=== PATIENT | female | born 1980 | race African-American/Black ===

== ENCOUNTER 2020-04-27 08:40 | Emergency (ER) | payer MEDICAID, OTHER ==
[~2020-04-27] VITALS: Ht 162.6 cm; Wt 60.3 kg
[~2020-04-27 08:40] MED LIST: CIPRO500 MG/5 M PO; DIFLUCAN150 MG PO; DIFLUCAN200 MG ORAL; IBUPROFEN600 MG PO; KEFLEX500 MG ORAL; MACROBID100 MG ORAL; METROGEL-VAGINA70 GM VG; RANITIDINE HCL150 MG ORAL; VICODIN 5-5001 EACH PO
[2020-04-27 08:56] VITALS: BP 109/67
--- NOTE | 2020-04-27 09:08 | Emergency Room Report ---
History of Present Illness General Chief Complaint: Generalized Weakness Source: Patient Present Illness HPI Patient is a 40-year-old female denies any significant past medical history who presents to the ER complaining of generalized weakness. Patient states that she has had heart palpitations over the past 3 days. She states that she feels her heart "jumping". She states that yesterday she ate some tacos and had several episodes of nonbloody diarrhea. Only one episode today. She denies any current abdominal pain, nausea or vomiting. She denies any fever or chills. Patient states that since yesterday she has felt more weak, fatigued and has shortness o f breath that is worse on exertion. She denies any lower extremity pain or edema. She denies any family history of early cardiovascular disease. She denies any recent travel. She denies being on any control or hormone replacement therapy. She denies any drug use or smoking. Allergies: Coded Allergies: No Known Allergies (Unverified , 11/27/11) COVID-19 Screening Contact w/high risk pt: No Experienced COVID-19 symptoms?: No COVID-19 Testing performed MEAT SCRUBBER: No Patient History Last Menstrual Period: 04/08/20 Now: No Reviewed Nursing Documentation: PMH: Agreed; PSxH: Agreed Nursing Documentation-PMH Past Medical History: No Stated History Review of Systems All Other Systems: negative except mentioned in HPI Physical Exam Vital Signs Date Time Temp Pulse Resp B/P (MAP) Pulse Ox O2 Delivery O2 Flow Rate FiO2 04/27/20 08:56 98.4 101 18 109/67 (81) 97 Room Air Sp02 EP Interpretation: reviewed, normal General Appearance: alert, GCS 15, non-toxic, mild distress Head: normocephalic Eyes: bilateral eye normal inspection, bilateral eye PERRL ENT: dry mucus membranes Neck: full range of motion, supple, no meningismus Respiratory: lungs clear, normal breath sounds, no accessory muscle use Cardiovascular #1: tachycardia Gastrointestinal: non tender, soft, no guarding, no rebound Genitourinary: no CVA tenderness Musculoskeletal: normal range of motion 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 Patient's labs demonstrate no significant acute abnormalities except for elevated D-dimer. I went over her results with her and explained to her that there were no acute abnormalities. Patient was concerned about the feeling of palpitations. I told her that she was on a property assessment monitor and that there were no arrhythmias that were seen during her time in the emergency room. Patient is pending CT chest abdomen pelvis. Patient signed out to oncoming physician at [address] results, reevaluation and final disposition. Laboratory Tests Test 04/27/20 09:05 04/27/20 09:07 White Blood Count 6.8 K/UL (4.8-10.8) Red Blood Count 5.03 M/UL (4.20-5.40) Hemoglobin 13.8 G/DL (12.0-16.0) Hematocrit 42.0 % (37.0-47.0) Mean Corpuscular Volume 84 FL (80-99) Mean Corpuscular Hemoglobin 27.4 PG (27.0-31.0) Mean Corpuscular Hemoglobin Concent 32.8 G/DL (32.0-36.0) Red Cell Distribution Width 12.4 % (11.6-14.8) Platelet Count 278 K/UL (150-450) Mean Platelet Volume 7.9 FL (6.5-10.1) Neutrophils (%) (Auto) 72.9 % (45.0-75.0) Lymphocytes (%) (Auto) 19.1 % (20.0-45.0) L Monocytes (%) (Auto) 6.8 % (1.0-10.0) Eosinophils (%) (Auto) 0.4 % (0.0-3.0) Basophils (%) (Auto) 0.9 % (0.0-2.0) Prothrombin Time 11.0 SEC (9.30-11.50) Prothrombin Time INR 1.0 (0.9-1.1) Activated Partial Thromboplast Time 27 SEC (23-33) D-Dimer 0.76 mg/L FEU (0.00-0.49) H Sodium Level 141 MMOL/L (136-145) Potassium Level 4.3 MMOL/L (3.5-5.1) Chloride Level 105 MMOL/L (98-107) Carbon Dioxide Level 25 MMOL/L (21-32) Anion Gap 11 mmol/L (5-15) Blood Urea Nitrogen 7 mg/dL (7-18) Creatinine 1.0 MG/DL (0.55-1.30) Estimated Glomerular Filtration Rate > 60 mL/min (>60) Glucose Level 100 MG/DL (74-106) Lactic Acid Level 2.00 mmol/L (0.4-2.0) Calcium Level 10.1 MG/DL (8.5-10.1) Magnesium Level 2.0 MG/DL (1.8-2.4) Total Bilirubin 0.3 MG/DL (0.2-1.0) Aspartate Amino Transferase (AST) 15 U/L (15-37) Alanine Aminotransferase (ALT) 13 U/L (12-78) Alkaline Phosphatase 71 U/L (46-116) Total Protein 8.0 G/DL (6.4-8.2) Albumin 4.3 G/DL (3.4-5.0) Globulin 3.7 g/dL Albumin/Globulin Ratio 1.2 (1.0-2.7) Lipase 197 U/L (73-393) Thyroid Stimulating Hormone (TSH) 2.703 uiU/mL (0.358-3.740) Free Thyroxine 1.35 NG/DL (0.76-1.46) Urine Color Pale yellow Urine Appearance Slightly cloudy Urine pH 6.5 (4.5-8.0) Urine Specific [place] 1.005 (1.005-1.035) Urine Protein Negative (NEGATIVE) Urine Glucose (UA) Negative (NEGATIVE) Urine Ketones Negative (NEGATIVE) Urine Blood 3+ (NEGATIVE) H Urine Nitrite Negative (NEGATIVE) Urine Bilirubin Negative (NEGATIVE) Urine Urobilinogen Normal MG/DL (0.0-1.0) Urine Leukocyte Esterase Negative (NEGATIVE) Urine RBC 2-4 /HPF (0 - 2) H Urine WBC 0-2 /HPF (0 - 2) Urine Squamous Epithelial Cells Moderate /LPF (NONE/OCC) H Urine Bacteria Few /HPF (NONE) Urine HCG, Qualitative Negative (NEGATIVE) Urine Opiates Screen Negative (NEGATIVE) Urine Barbiturates Screen Negative (NEGATIVE) Phencyclidine (PCP) Screen Negative (NEGATIVE) Urine Amphetamines Screen Negative (NEGATIVE) Urine Benzodiazepines Screen Negative (NEGATIVE) Urine Cocaine Screen Negative (NEGATIVE) Urine Marijuana (THC) Screen Negative (NEGATIVE) EKG Diagnostic Results Troponin ordered: Yes When was troponin ordered?: Apr 27, 2020 EKG Time: 09:13 EP Interpretation: Ya Elizondo MD Rate: normal - 90 bpm Rhythm: NSR ST Segments: no acute changes ASA given to the pt in ED: No Rhythm Strip Diag. Results Rhythm Strip Time: 09:08 EP Interpretation: yes - Ya Elizondo MD Rate: 102 bpm Rhythm: no PVC's, no ectopy, other - sinus tachycardia Chest X-Ray Diagnostic Results Chest X-Ray Diagnostic Results : Chest X-Ray Ordered: Yes # of Views/Limited/Complete: 1 View Indication: Shortness of Breath EP Interpretation: Yes Interpretation: no consolidation, no effusion, no pneumothorax, no acute cardiopulmonary disease Impression: No acute disease Electronically Signed by: Ya Elizondo MD Last Vital Signs Date Time Temp Pulse Resp B/P (MAP) Pulse Ox O2 Delivery O2 Flow Rate FiO2 04/27/20 08:56 98.4 101 18 109/67 (81) 97 Room Air Condition: Stable Signed Out To: Dr. Jimenez at 1400 Scripts Metronidazole* (FLAGYL*) 500 Mg Tablet 500 MG ORAL THREE TIMES A DAY, #21 TAB Prov: Gary Jimenez MD 04/27/20 Famotidine* (Pepcid 20mg tablet*) 20 Mg Tablet 20 MG ORAL DAILY for Gerd, #30 TAB 0 Refills Prov: Gary Jimenez MD 04/27/20 Alprazolam* (XANAX*) 0.25 Mg Tablet 0.25 MG ORAL TID PRN for For Anxiety, #10 TAB Prov: Gary Jimenez MD 04/27/20 Referrals: [facility]ERR[facility] (PCP) Additional Instructions: Please note that this report is being documented using NEWLINE SOFTWARE technology. This can lead to erroneous entry secondary to incorrect interpretation by the dictating instrument. Ya Elizondo M.D. Apr 27, 2020 09:08
[2020-04-27 09:39] LABS: BASOPHILS % (AUTO) 0.9 % (0.0-2.0); EOSINOPHILS % (AUTO) 0.4 % (0.0-3.0); HEMOGLOBIN 13.8 G/DL (12.0-16.0); LYMPHOCYTES % (AUTO) 19.1 % (20.0-45.0); MEAN CORPUSCULAR VOLUME 84 FL (80-99); MONOCYTES % (AUTO) 6.8 % (1.0-10.0); NEUTROPHILS % (AUTO) 72.9 % (45.0-75.0); PLATELET COUNT 278 K/UL (150-450); RED BLOOD COUNT 5.03 M/UL (4.20-5.40); RED CELL DISTRIBUTION WIDTH 12.4 % (11.6-14.8); WHITE BLOOD COUNT 6.8 K/UL (4.8-10.8)
[2020-04-27 09:41] LABS: APPEARANCE,URINE SLIGHTLY CLOUDY; BILIRUBIN, URINE NEGATIVE (NEGATIVE); COLOR,URINE PALE YELLOW; GLUCOSE, URINE (UA) NEGATIVE (NEGATIVE); KETONES,URINE NEGATIVE (NEGATIVE); LEUKOCYTE ESTERASE ,URINE NEGATIVE (NEGATIVE); NITRITE,URINE NEGATIVE (NEGATIVE); PH,URINE 6.5 (4.5-8.0); PROTEIN,URINE NEGATIVE (NEGATIVE); UROBILINOGEN,URINE NORMAL MG/DL (0.0-1.0)
[2020-04-27 09:54] LABS: ANION GAP 11 mmol/L (5-15); BLOOD UREA NITROGEN 7 mg/dL (7-18); CALCIUM 10.1 MG/DL (8.5-10.1); CARBON DIOXIDE 25 MMOL/L (21-32); CHLORIDE 105 MMOL/L (98-107); POTASSIUM 4.3 MMOL/L (3.5-5.1); SODIUM 141 MMOL/L (136-145)
[2020-04-27 10:03] LABS: ALANINE AMINOTRANSFERASE 13 U/L (12-78); ALBUMIN 4.3 G/DL (3.4-5.0); ALBUMIN/GLOBULIN RATIO 1.2 (1.0-2.7); ALKALINE PHOSPHATASE 71 U/L (46-116); ASPARTATE AMINO TRANSFERASE 15 U/L (15-37); BILIRUBIN,TOTAL 0.3 MG/DL (0.2-1.0)
--- NOTE | 2020-04-27 10:16 | Diagnostic Imaging Report ---
EXAM: XR Chest, 1 View CLINICAL HISTORY: SOB TECHNIQUE: Frontal view of the chest. COMPARISON: No relevant prior studies available. FINDINGS: Lungs: Unremarkable. No consolidation. Pleural space: Unremarkable. No pneumothorax. Heart: Unremarkable. No cardiomegaly. Mediastinum: Unremarkable. Bones/joints: Unremarkable. IMPRESSION: Normal chest x-ray.
--- NOTE | 2020-04-27 14:34 | Diagnostic Imaging Report ---
EXAM: CT Angiography Chest With Intravenous Contrast CLINICAL HISTORY: SOB TECHNIQUE: Axial computed tomographic angiography images of the chest with intravenous contrast. CTDI is 3.0 mGy and DLP is 116.1 mGy-cm. One or more of the following dose reduction techniques were used: automated exposure control, adjustment of the mA and/or kV according to patient size, use of iterative reconstruction technique. MIP reconstructed images were created and reviewed. COMPARISON: No relevant prior studies available. FINDINGS: Pulmonary arteries: No pulmonary embolism. Aorta: No acute findings. No thoracic aortic aneurysm. Lungs: Unremarkable. No mass. No consolidation. Pleural space: Tiny bilateral pleural effusions. No pneumothorax. Heart: Unremarkable. No cardiomegaly. No significant pericardial effusion. No evidence of RV dysfunction. Bones/joints: No acute fracture. No dislocation. Soft tissues: Unremarkable. Lymph nodes: Small bilateral axillary lymph nodes. Stomach and bowel: Mild thickening of the colon in the upper abdomen may be a colitis. IMPRESSION: 1. No pulmonary embolism. 2. Tiny bilateral pleural effusions. Lungs clear. 3. Mild thickening of the colon in the upper abdomen may be a colitis.
--- NOTE | 2020-04-27 14:42 | Diagnostic Imaging Report ---
EXAM: CT Abdomen and Pelvis With Intravenous Contrast CLINICAL HISTORY: SOB TECHNIQUE: Axial computed tomography images of the abdomen and pelvis with intravenous contrast. CTDI is 4.3 mGy and DLP is 213 mGy-cm. One or more of the following dose reduction techniques were used: automated exposure control, adjustment of the mA and/or kV according to patient size, use of iterative reconstruction technique. COMPARISON: No relevant prior studies available. FINDINGS: Lung bases: Unremarkable. No mass. No consolidation. Pleural space: Tiny bilateral pleural effusions. ABDOMEN: Liver: 3 mm tiny low-density lesion right lobe liver, too small to characterize. Gallbladder and bile ducts: Unremarkable. No calcified stones. No ductal dilation. Pancreas: Unremarkable. No mass. No ductal dilation. Spleen: Unremarkable. No splenomegaly. Adrenals: Unremarkable. No mass. Kidneys and ureters: Unremarkable. No solid mass. No hydronephrosis. Stomach and bowel: Diffuse thickening of the colon with mild pericolonic stranding consistent with colitis. Small free fluid. No free air or abscess. No bowel obstruction. PELVIS: Appendix: Normal appendix. Bladder: Unremarkable. No mass. Reproductive: 1.7 cm crenated enhancing right ovarian cyst or follicle. ABDOMEN and PELVIS: Intraperitoneal space: See above. Bones/joints: No acute fracture. No dislocation. Soft tissues: Unremarkable. Vasculature: Unremarkable. No abdominal aortic aneurysm. Lymph nodes: Small to borderline bilateral inguinal lymph nodes. IMPRESSION: 1. Diffuse thickening of the colon with mild pericolonic stranding consistent with colitis. Small free fluid. No free air or abscess. No bowel obstruction. 2. Normal appendix. 3. Tiny bilateral pleural effusions.
[2020-04-27] MEDS ORDERED: ALPRAZOLAM0.25 MG ORAL (14:55)
[2020-04-27] MEDS ORDERED: METRONIDAZOLE500 MG ORAL (14:55)
[2020-04-27] MEDS ORDERED: FAMOTIDINE20 MG ORAL (14:55)
== END 2020-04-27 15:14 | disposition home or self-care (01) ==
LOC: EMR 09:05
DX: R53.1 Weakness (principal)
CPT/HCPCS: 36415; 71045; 71275; 74177; 80053; 80307; 81003; 81025; 83605; 83690; 83735; 84439; 84443; 85025; 85379; 85610; 85730; 93005; 96360; 96361; Q9965; Q9967; Z7502; 99284